=== PATIENT | female | born 1960 | race Caucasian/White ===

== ENCOUNTER → 2021-06-06 | Outpatient (CLI) | payer BC ==
--- NOTE | 2021-06-06 13:22 | XRAY Report ---
PROCEDURE: Ankle 3 View RT INDICATIONS: RIGHT ANKLE PAIN TECHNIQUE: 3 views of the ankle were acquired. COMPARISON: None FINDINGS: Bones: No fractures or dislocations. Ankle mortise is normally aligned. No suspicious bony lesions . Soft tissues: No tibiotalar joint effusion. Achilles tendon appears normal. Lateral soft tissue sw elling noted IMPRESSION: Soft tissue swelling without fracture or foreign body Reviewed by: Alfredo Goldman MD on 06/06/2021 12:21 PM AKDT Approved by: Alfredo Goldman MD on 06/06/2021 12:21 PM AKDT Station ID: [id number]
== END ==
LOC: DI.S 08:00
PROVIDERS: ATTEND Registered Nurse
DX: M79.89 Other specified soft tissue disorders (principal)